=== PATIENT | male | born 1950 | race Caucasian/White ===

== ENCOUNTER 2018-09-16 22:06 | Emergency (ER) | payer SELFPAY ==
[~2018-09-16] VITALS: Ht 180.3 cm; Wt 86.2 kg
[2018-09-16] MEDS ORDERED: NKM (22:19)
--- NOTE | 2018-09-16 22:30 | NUR ---
ED Nurse Note: RECIEVED PT FROM HOME HERE WITH C/O CHEST PAIN X 30 MINUTES [employer]PAR[employer] WHILE JOGGING, PT IS AWAKE, ALERT AND ORIENTED X 4, RATES PAIN AT 5/10 AND PRESSURE FEELING, PT HAS ELECTRODES ON HIS CHEST FROM PREVIOUS MD VISITS, STATING HAS BEEN SEEN 4 TIMES THIS PAST WEEK FOR SAME REASON, NO SOB OR LABORED BREATHING NTOED, V/S STABLE, PT PLACED ON CARDIAC MONITORING, EKG DONE AND IV LINE PLACED, WILL RESUME CARE ORDERED
[2018-09-16] MEDS ORDERED: Aspirin Baby 81mg ORAL ONE (22:45)
--- NOTE | 2018-09-16 22:45 | Emergency Room Report ---
History of Present Illness General Chief Complaint: Chest Pain Source: Patient Present Illness [facility] This is a 68-year-old male with no past medical history. He presents with chief complaint of chest pain. Onset about 30 minutes prior to arrival. He said this occurred when he was jogging. Never had this problem before. No radiation the no fever chills but no nausea no vomiting. Pain is 8 out of 10. No diaphoresis. Allergies: Coded Allergies: No Known Allergies (Unverified , 09/16/18) Patient History Past Medical History: none, see triage record, old chart reviewed Past Surgical History: other Pertinent Family History: none Social History: Denies: smoking Immunizations: other Reviewed Nursing Documentation: PMH: Agreed; PSxH: Agreed Nursing Documentation-PMH Past Medical History: No Stated History Review of Systems Eye: Denies: eye pain, blurred vision ENT: Denies: ear pain, nose congestion, throat swelling Respiratory: Denies: cough, shortness of breath Cardiovascular: Reports: chest pain; Denies: palpitations Gastrointestinal: Denies: abdominal pain, diarrhea, nausea, vomiting Musculoskeletal: Denies: back pain, joint pain Skin: Denies: rash Neurological: Denies: headache, numbness Endocrine: Denies: increased thirst, increased urine Hematologic/Lymphatic: Denies: easy bruising All Other Systems: negative except mentioned in HPI Physical Exam Vital Signs Date Time Temp Pulse Resp B/P (MAP) Pulse Ox O2 Delivery O2 Flow Rate FiO2 09/16/18 22:11 98.4 113 17 99 Room Air vitals unremarkable. Repeat heart rate 55 Sp02 EP Interpretation: reviewed, normal General Appearance: well appearing, no apparent distress, alert Head: normocephalic, atraumatic Eyes: bilateral eye PERRL, bilateral eye EOMI ENT: hearing grossly normal, normal pharynx Neck: full range of motion, supple, no meningismus Respiratory: chest non-tender, lungs clear, normal breath sounds Cardiovascular #1: regular rate, rhythm, no murmur Gastrointestinal: normal bowel sounds, non tender, no mass, no organomegaly, no bruit, non-distended Musculoskeletal: back normal, gait/station normal, normal range of motion Psychiatric: mood/affect normal Skin: warm/dry Medical Decision Making Diagnostic Impression: Primary Impression: Chest pain Qualified Codes: R07.9 - Chest pain, unspecified ER Course Patient with chest pain. Very atypical in nature. I doubt that he was jogging since he had several bagfull of stuff with him. He told the nurse he was going to the grocery store. He has multiple EKG leads latif on his chest. He also has multiple tape latif and IV latif on his arms. This patient looked very familiar to me. I have seen this patient before. The name he gave his a first visit here. Registration and nursing staff felt that he looked very familiar. She was asking for pain medication. I told him we'll hold off on any narcotics but now. We'll check blood tests to see if there is any cardiac issue. Patient her that he was not getting any pain medication, he signed out AGAINST MEDICAL ADVICE. He is competent to make that decision. EKG Diagnostic Results Rate: normal Rhythm: NSR ST Segments: no acute changes Rhythm Strip Diag. Results EP Interpretation: yes Rate: 55 Rhythm: NSR, no PVC's, no ectopy Last Vital Signs Date Time Temp Pulse Resp B/P (MAP) Pulse Ox O2 Delivery O2 Flow Rate FiO2 09/16/18 22:11 98.4 113 17 99 Room Air Status: unchanged Disposition: AGAINST MEDICAL ADVICE Condition: Stable Raymon Parrish MD September 16, 2018 22:45
[2018-09-16 22:50] LABS: BASOPHILS % (AUTO) 1.4 % (0.0-2.0); EOSINOPHILS % (AUTO) 3.5 % (0.0-3.0); HEMATOCRIT 36.9 % (42.0-52.0); HEMOGLOBIN 12.6 G/DL (14.2-18.0); LYMPHOCYTES % (AUTO) 24.5 % (20.0-45.0); MEAN CORPUSCULAR VOLUME 84 FL (80-99); MONOCYTES % (AUTO) 7.7 % (1.0-10.0); NEUTROPHILS % (AUTO) 62.8 % (45.0-75.0); PLATELET COUNT 238 K/UL (150-450); RED BLOOD COUNT 4.41 M/UL (4.70-6.10); RED CELL DISTRIBUTION WIDTH 12.6 % (11.6-14.8); WHITE BLOOD COUNT 7.3 K/UL (4.8-10.8)
--- NOTE | 2018-09-16 22:50 | NUR ---
AMA: SEE AMA FORM. PT LEAVING AMA, FORM SIGNED, PT IS AMBULATORY, NAD NOTED, SAT AND EXPLAINED TO PT RISK AND BENEFITS OF LEAVING, PT DID NOT WANT TO STAY AT FACILITY.
[2018-09-16 23:02] LABS: ANION GAP 7 mmol/L (5-15); BLOOD UREA NITROGEN 22 mg/dL (7-18); CALCIUM 8.7 MG/DL (8.5-10.1); CARBON DIOXIDE 27 MMOL/L (21-32); CHLORIDE 102 MMOL/L (98-107); CREATININE 1.3 MG/DL (0.55-1.30); SODIUM 136 MMOL/L (136-145)
[2018-09-16 23:03] VITALS: BP 124/54
[2018-09-16 23:06] VITALS: BP 124/54
[2018-09-16 23:15] LABS: ALANINE AMINOTRANSFERASE 24 U/L (12-78); ALBUMIN 3.4 G/DL (3.4-5.0); ALBUMIN/GLOBULIN RATIO 0.9 (1.0-2.7); ALKALINE PHOSPHATASE 80 U/L (46-116); ASPARTATE AMINO TRANSFERASE 22 U/L (15-37); BILIRUBIN,TOTAL 0.3 MG/DL (0.2-1.0); CKMB 5.9 NG/ML (0.0-3.6); CREATINE KINASE 431 U/L (26-308)
--- NOTE | 2018-09-18 20:25 | Cardiology Report ---
APPROVED REPORT EKG Measurement Heart [id number] Sinus bradycardia Otherwise normal ECG
== END 2018-09-16 23:09 | disposition left against medical advice (07) ==
LOC: EMR 22:40
DX: R07.9 Chest pain, unspecified (principal)
CPT/HCPCS: 36415; 80053; 82550; 82553; 84484; 85025; 93005; 99283